=== PATIENT | male | born 1960 | race Caucasian/White ===

== ENCOUNTER → 2020-10-18 09:45 | Outpatient (CLI) | payer BC, SELFPAY ==
--- NOTE | ~2020-10-18 | CT_ITS ---
EXAMINATION: CT abdomen pelvis wo con EXAM DATE: 10/18/2020 10:14 INDICATION: Calcium kidney stone . TECHNIQUE: Spiral CT of the abdomen and pelvis was performed without contrast. Axial, coronal and sag ittal images were reviewed. The dose-length product (DLP) for this examination was 1096.85 mGy-cm. The exposure was tailored according to patient size (auto mA exposure control), and iterative reconst ruction (ASIR) was used as additional dose reduction technique. There is no prior study for comparis on. FINDINGS: There is a 4 mm stone in the distal aspect of the left ureter, 2 cm from the ureterovesicul ar junction. Mild left hydroureter and periureteral fat stranding. Large amount of calcium casting th e right renal pelvis and inferior moieties with mild adjacent inflammation. Possible staghorn calculu s. On the left there are 2 sizable stones measuring up to 9 mm. There is mild to moderate left, mild right renal atrophy. The prostate is unremarkable. The bladder is unremarkable. The liver, spleen, adrenal glands and pancreas are unremarkable. Gallbladder is unremarkable. No bi liary obstruction. There is no retroperitoneal or pelvic lymphadenopathy. The appendix is normal. There is mild scattered colonic diverticulosis. There is no adjacent inflamm atory change to suggest diverticulitis. The stomach and small bowel are unremarkable. There is expec salvador amount of colonic stool. No free intraperitoneal gas. The heart is normal in size. There are no pericardial or pleural effusions. There is a 10 mm lingular nodule without spiculation, a 10 mm right lower lobe nodule which is mildly lobulated. Another 6 mm right lower lobe nodule and several other smaller nodules identified. Granul omata versus metastatic disease. Large Schmorl's node in the inferior endplate of L3. There are no o steoblastic or osteolytic lesions identified. IMPRESSION: 1. Scattered lung base nodules up to 1 cm, metastatic disease versus granulomata. Clinical correlati on for any known primary malignancy. In absence of outside CT available for comparison, a follow-up P ET/CT, 3 month follow-up chest CT can be considered. 2. Left distal ureteral 4 mm stone, mild hydroureter. 3. Bilateral nephrolithiasis, large right-sided calcification casting pelvis, calyces. 4. Colonic diverticulosis. Reviewed, dictated and finalized at location A. CTIVE AUTOMOBILE SECTION IMPRESSION: 1. Scattered lung base nodules up to 1 cm, metastatic disease versus granuloma ta. Clinical correlation for any known primary malignancy. In absence of outsid e CT available for comparison, a follow-up PET/CT, 3 month follow-up chest CT c an be considered. 2. Left distal ureteral 4 mm stone, mild hydroureter. 3. Bilateral nephrolithiasis, large right-sided calcification casting pelvis, calyces. 4. Colonic diverticulosis.
--- NOTE | ~2020-10-18 | XR_ITS ---
EXAMINATION: XR abdomen/kub 1V EXAM DATE: 10/18/2020 10:14 INDICATION: Calcium kidney stone. TECHNIQUE: Frontal projection(s) of the abdomen for interpretation. Correlation is made to CT earlier same date. FINDINGS: Right-sided casting renal collecting system stone identified, indicated. Possible identific ation of left inferior calyceal stone. Pelvic calcifications are likely phleboliths. Left distal uret eral stone is difficult to identify. Nonobstructing bowel gas pattern. IMPRESSION: Relatively low density but large casting right calyceal, pelvis calcification. Can't con fidently identify the distal left ureteral stone. Reviewed, dictated and finalized at location A. STIC ASSOCIATE IMPRESSION: Relatively low density but large casting right calyceal, pelvis ca lcification. Can't confidently identify the distal left ureteral stone.
== END ==
PROVIDERS: Visit Provider Urology
DX: N20.0 Calculus of kidney (principal); R91.8 Other nonspecific abnormal finding of lung field; N20.1 Calculus of ureter; N13.4 Hydroureter; K57.90 Diverticulosis of intestine, part unspecified, without perforation or abscess without bleeding
CPT/HCPCS: 74018; 74176

== ENCOUNTER 2020-10-31 07:41 | Outpatient (CLI) | payer BC, SELFPAY ==
--- NOTE | ~2020-10-31 | PE_ITS ---
EXAMINATION: PET skull to mid thigh DATE: 10/31/2020 09:27 INDICATION: Pulmonary nodules. TECHNIQUE: Blood glucose level was 206 mg/dL. 10.183 mCi of 18-fluorodeoxyglucose (18-FDG) was admini stered i.v. Low dose computed tomography (CT) images were acquired from the base of the brain to the proximal thighs for attenuation correction and anatomic localization. Automated exposure control was employed. Dose-length product (DLP) was 1225 mGy-cm. Positron emission tomography (PET) images were a cquired in the same distribution. COMPARISON: CT abdomen and pelvis 10/18/2020 FINDINGS: Head/neck: There is increased activity in the oropharynx and glottis without CT correlate, likely phy siologic. There are no pathologically enlarged lymph nodes. Chest: There are a few nodules in the lungs measuring up to 10 mm in the lingula without increased ac tivity. No pleural effusion. The heart size is normal. There are coronary artery calcifications. Ther e are calcifications of the aortic valve. No pericardial effusion. Abdomen/pelvis/proximal thighs: The liver, gallbladder, spleen, pancreas, and adrenal glands are norm al. There is mild atrophy of left kidney. There are multiple stones in the kidneys including a stagho rn calculus in right kidney. There is mild right hydronephrosis. The prostate is mildly enlarged. The re are no dilated loops of bowel. There are no pathologically enlarged lymph nodes. There is no free intraperitoneal fluid. There is an old healed fracture of right ischium. IMPRESSION: 1. Pulmonary nodules measuring up to 10 mm without increased activity, probably benign. Noncontrast l ow-dose chest CT is recommended in 6 months. 2. Bilateral kidney stones including a staghorn calculus in right kidney with mild right hydronephros is. Reviewed, dictated and finalized at location A. IMPRESSION: 1. Pulmonary nodules measuring up to 10 mm without increased activity, probably benign. Noncontrast low-dose chest CT is recommended in 6 months. 2. Bilateral kidney stones including a staghorn calculus in right kidney with m ild right hydronephrosis.
[2020-10-31 08:01] LABS: Glucose Point of Care 206 (65-105)
== END 2020-10-31 07:42 | disposition home or self-care (01) ==
PROVIDERS: PCP Nurse Practitioner Family; Visit Provider Nurse Practitioner Family
DX: R91.8 Other nonspecific abnormal finding of lung field (principal); N20.0 Calculus of kidney
CPT/HCPCS: 78815; 82948; A9552

== ENCOUNTER 2020-11-03 12:25 | Outpatient (CLI) | payer BC, SELFPAY ==
--- NOTE | ~2020-11-03 | NM_ITS ---
EXAMINATION: NM renal flow and function DATE: 11/03/2020 13:57 INDICATION: Nephrolithiasis. Hydronephrosis. TECHNIQUE: 7.8 mCi Tc-99m MAG3 was administered IV. The patient was scanned in the supine position. A posterior abdominal radionuclide angiogram was obtained. A subsequent time course of static images of the kidneys, ureters, and bladder was obtained. COMPARISON: CT dated 10/18/2020 FINDINGS: The posterior abdominal radionuclide angiogram and sequential static images show normal position, and morphology of the kidneys. There is slight asymmetric enlargement of the right kidney with central p hotopenic region which fills in on the delayed images consistent with hydronephrosis seen on prior CT . Peak renal parenchymal uptake was 3.5 min in left kidney and >30 min in right kidney (normal peak 3 -5 minutes) with continually rising right renal curve. The relative early renal uptake was 58% on th e left and 42% on the right (<40% is abnormal). The peak to 1/2 peak time from the left kidney is 24 minutes which is slightly greater than normal and suggests low-grade obstruction although no obstruct ing stone was evident on the left on the subsequent PET/CT study dated 10/31/2020. No abnormalities of the ureters or bladder are seen. IMPRESSION: 1. Asymmetrically decreased right renal function which is at the upper limits of normal with a kat nually rising right renal activity curve suggesting physiologically significant obstruction likely re sulting from the large staghorn calculus seen on prior CT. 2. Mildly delayed peak to 1/2 peak time of 24 minutes for the left kidney suggesting a low-grade obst ruction without no obstructing stones was evident on the most recent PET/CT study. Reviewed, dictated and finalized at location B. IMPRESSION: 1. Asymmetrically decreased right renal function which is at the upper limits of normal with a continually rising right renal activity curve suggesting physi ologically significant obstruction likely resulting from the large staghorn janine culus seen on prior CT. 2. Mildly delayed peak to 1/2 peak time of 24 minutes for the left kidney sugge sting a low-grade obstruction without no obstructing stones was evident on the most recent PET/CT study.
== END 2020-11-03 12:26 | disposition home or self-care (01) ==
PROVIDERS: PCP Nurse Practitioner Family; Visit Provider Urology
DX: N20.0 Calculus of kidney (principal)
CPT/HCPCS: 78707; A9562

== ENCOUNTER 2021-01-03 08:37 | Outpatient (CLI) | payer BC, SELFPAY ==
--- NOTE | ~2021-01-03 | CT_ITS ---
EXAMINATION: CT abdomen pelvis wo con EXAM DATE: 01/03/2021 09:13 INDICATION: Kidney stone. TECHNIQUE: Spiral CT of the abdomen and pelvis was performed without contrast. Axial, coronal and sag ittal images were reviewed. The dose-length product (DLP) for this examination was 1131.95 mGy-cm. The exposure was tailored according to patient size (auto mA exposure control), and iterative reconst ruction (ASIR) was used as additional dose reduction technique. Comparison is made to prior examinati on from 10/18/2020. FINDINGS: There is a stone in the right renal pelvis measuring 1.5 x 3.0 cm, with moderate to severe right hydronephrosis, only mild hydronephrosis on prior study. Moderate right-sided perinephric fat s tranding. Multiple other large right-sided stones or stone fragments. Smaller left renal stone burden , measuring up to about 7 mm in size. No left hydronephrosis. No stones within the ureters. The pros hill is unremarkable. The bladder is unremarkable. The liver, spleen, adrenal glands and pancreas a re unremarkable. Gallbladder is unremarkable. No biliary obstruction. There is no retroperitoneal or pelvic lymphadenopathy. The appendix is normal. There is mild scattered colonic diverticulosis. There is no adjacent inflamm atory change to suggest diverticulitis. The stomach and small bowel are unremarkable. There is expec salvador amount of colonic stool. No free intraperitoneal gas. The heart is normal in size. There are no pericardial or pleural effusions. Scattered lung base nodules up to 1 cm unchanged, and recently evaluated by PET/CT to be without incr eased activity, most likely benign. Patient's 6 month follow-up CT from that exam is due mid Septembe r. There are no osteoblastic or osteolytic lesions identified. IMPRESSION: 1. Large right UPJ stone, large amount of additional right calyceal stone fragments. Development of moderate to severe right hydronephrosis and moderate perinephric fat stranding. 2. Left nephrolithiasis. 3. Scattered colonic diverticulosis. 4. Stable pulmonary nodules; follow-up chest CT in April. Reviewed, dictated and finalized at location A. IMPRESSION: 1. Large right UPJ stone, large amount of additional right calyceal stone frag ments. Development of moderate to severe right hydronephrosis and moderate guillermo nephric fat stranding. 2. Left nephrolithiasis. 3. Scattered colonic diverticulosis. 4. Stable pulmonary nodules; follow-up chest CT in April.
--- NOTE | ~2021-01-03 | XR_ITS ---
EXAMINATION: XR abdomen/kub 1V EXAM DATE: 01/03/2021 09:03 INDICATION: Kidney stone. TECHNIQUE: Frontal projection(s) of the abdomen for interpretation. Correlation is made to CT abdomen pelvis same date. FINDINGS: Large right UPJ stone identified, along with other right calyceal stone fragments. Left ne phrolithiasis also identified. Nonobstructive bowel gas pattern. Calcifications in the pelvis are bel ieved to be phleboliths. There are mild bony degenerative changes. IMPRESSION: 1. Bilateral nephrolithiasis. Reviewed, dictated and finalized at location A.
== END 2021-01-03 08:38 | disposition home or self-care (01) ==
PROVIDERS: PCP Nurse Practitioner Family; Visit Provider Urology
DX: N20.1 Calculus of ureter (principal); N13.0 Hydronephrosis with ureteropelvic junction obstruction; K57.30 Diverticulosis of large intestine without perforation or abscess without bleeding; R91.8 Other nonspecific abnormal finding of lung field
CPT/HCPCS: 74018; 74176

== ENCOUNTER 2021-01-09 03:33 | Day surgery (SDC) | payer BC, SELFPAY ==
[2021-01-08 14:14] VITALS: BMI 35.4
[2021-01-09] VITALS (8 sets, daily range): BP systolic 124–156; BP diastolic 80–96; PULSE 83–105; RESP 16–22; TEMP 36.4; O2SAT 91–97
--- NOTE | ~2021-01-09 | XR_ITS ---
EXAMINATION: XR retrograde pyelo w/stent RT DATE: 01/09/2021 13:25 INDICATION: Right internal ureteral stent placement TECHNIQUE: Fluoroscopic images from a right internal ureteral stent placement are submitted for mariely segura 30 seconds of fluoroscopy time. 7 fluoroscopic images. FINDINGS: There is a right double-J internal ureteral stent projecting in expected position, with proximal Sanford loop at the level of the renal pelvis and distal loop in the pelvis within the bladder lumen. IMPRESSION: 1. Right internal ureteral stent placement. Please refer to real-time procedural findings for soraida goyal. Reviewed, dictated and finalized at location A. IMPRESSION: 1. Right internal ureteral stent placement. Please refer to real-time procedu ral findings for details.
--- NOTE | 2021-01-09 11:03 | WPDHPUPDATE1 ---
History and Physical Update Update Date/Time: 01/09/21 11:03 History and Physical has been reviewed, including an updated exam of the patient. There are NO changes in the patient's condition. Risks, benefits, and alternatives have been discussed and questions answered. Patient agrees to proceed with procedure. Proceed with cysto, right retrograde, right stent placement.
[2021-01-09] MEDS: LACTATED RINGERS 1,000 ML 30 ML IV CONT (12:11)
--- NOTE | 2021-01-09 12:12 | P.PNAN_ITS ---
Anes - Initial Pre Proc Eval Procedure: Operation Date: 01/09/21 15:00 Proposed Procedures p Cystoscopy ,Right Ureteroscopy with Stent Placement, Right Retrograde Pyelogram - Michael Whitaker MD Date/Time: 01/09/21 12:12 Surgeon: Michael Whitaker MD Pre Op Diagnosis: Right renal stone Patient Data Age: 60 Gender: M Height: 5 ft 10.5 in Weight: 113.4 kg Allergies Allergy/AdvReac Type Severity Reaction Status Date / Time No Known Allergies Allergy Verified 01/09/21 12:04 Home Medications Medication Instructions Recorded Confirmed Type semaglutide [Ozempic] 0.5 mg SUBCUT WEEKLY 01/08/21 01/08/21 History Patient hx anesthesia problems: none Family hx anesthesia problems: none REPLACED BY [facility] Past Medical History Medical History (Updated 01/09/21 @ 12:13 by Simba Drummond MD) Diabetes Migraine Obesity Renal stones Surgical History Surgical History (Updated 01/09/21 @ 12:14 by Simba Drummond MD) History of total knee arthroplasty Social History Social History Smoking status: Never smoker Alcohol intake: never Substance use: never Substance use type: does not use Living arrangements: with family Spiritual care concerns: No Anes - Eval Final PreProcedure Day of Procedure 01/09/21 12:12 Patient weight: obese Heart: regular rate and rhythm Lungs: clear to auscultation Airway: Mallampati scale class II Neurological: alert and oriented Last oral intake: >/= 8 hours ASA classification: III Emergent: no Anesthetic plan: proceed Anesthesia type and monitoring: general LMA and standard monitoring Informed Consent: The patient's anesthetic plan and its attendant risks and benefits were discussed with the patient/family/POA. Questions were solicited and answers provided to the satisfaction of the patient/family/POA.
[2021-01-09 12:14] LABS: Glucose Point of Care 155 mg/dl (65-105)
[2021-01-09] MEDS: ceFAZolin 3 GM/D5W 100 ML 100 ML IVPB (12:59)
[2021-01-09] MEDS: LIDOCAINE HCL 2% GEL UROJET 10 ML PKG MUCOUS MEM (13:20)
--- NOTE | 2021-01-09 13:25 | PM.PROC ---
Procedure Note - Detailed Date of procedure: 01/09/21 Pre-op diagnosis: Right renal stone Post-op diagnosis: same Procedure performed: Cystoscopy, right retrograde pyelogram, right ureteral stent placement 6 Bahraini contour Description of procedure: Patient is taken the operative suite and correctly identified. Once anesthesia was obtained he was placed in dorsal lithotomy position and prepped and draped usual sterile fashion. Twenty-two Bahraini scope was inserted in the bladder. There are no tumors noted. The right ureteral orifice was cannulated with a Foster and a pyelogram was performed. Guidewire was then placed past the stone. A 6 [place]i contour stent was then placed with the proximal end which appears to be in the renal pelvis adjacent to the stone in the distal in the bladder. 2% viscous lidocaine was inserted urethra. He is taken recovery stable condition. He will proceed with his percutaneous nephrolithotomy with Dr. Olguin as an outpatient at a later point time. Anesthesia: GLMA Surgeon: Michael Whitaker MD Drains: Yes Packing: No Pathology: none sent Complications: No immediate complications Condition: stable Disposition: PACU
[2021-01-09 14:24] LABS: Glucose Point of Care 163 mg/dl (65-105)
== END 2021-01-09 14:45 | disposition home or self-care (01) ==
PROVIDERS: PCP Nurse Practitioner Family; Visit Provider Urology
PROC: (CPT 52352; principal; 2021-01-09 15:00)
DX: N20.1 Calculus of ureter (principal); E11.9 Type 2 diabetes mellitus without complications; E66.9 Obesity, unspecified; Z68.38 Body mass index [BMI] 38.0-38.9, adult
CPT/HCPCS: 52332; 74420; 82948; A9270; C1758; C1769; C2617; J0690; J1100; J2250; J2405; J2704; J3010; J7120; Q9966

== ENCOUNTER 2021-01-29 10:05 | Outpatient (CLI) | payer BC, SELFPAY ==
--- NOTE | ~2021-01-29 | XR_ITS ---
XR abdomen/kub 1V 01/29/2021 10:17 Indication: Renal stones Procedure: KUB Comparison: 01/03/2021 Findings: There are right renal stones. There is a right internal ureteral stent in expected position . There are pelvic phleboliths. There are faint left renal stones. Bowel gas pattern is nonobstructiv e. Impression: 1: Bilateral nephrolithiasis with right internal ureteral stent in expected position. Reviewed, dictated and finalized at location A. Impression: 1: Bilateral nephrolithiasis with right internal ureteral stent in expected pos ition.
== END 2021-01-29 10:06 | disposition home or self-care (01) ==
LOC: ANHIMG 10:08
PROVIDERS: PCP Nurse Practitioner Family; Visit Provider Urology
DX: N28.9 Disorder of kidney and ureter, unspecified (principal); N20.0 Calculus of kidney; Z96.0 Presence of urogenital implants
CPT/HCPCS: 74018

== ENCOUNTER 2021-10-01 03:01 | Outpatient (CLI) | payer BC, SELFPAY ==
[2021-09-21 09:00] VITALS: BMI 38.7
--- NOTE | 2021-09-21 09:07 | PC.NURSE ---
Report to the Outpatient Waiting Room, entrance under the green pavilion located off [facility], at time 0730 on date 10/01/21. OR Time: 0930. - You will be asked a series of questions to screen for COVID 19 for your protection. - A mask is required within the hospital. - No visitors are allowed at this time. Preoperative COVID Testing Requirements: No COVID Test needed if: (proof is required; if not received patient will have Rapid Test prior to entry) - Patient has received COVID Vaccine at least 14 days prior to procedure date or - Patient has positive COVID test result within last 90 days of surgery date. COVID Test needed if above criteria is not met - No food/DRINK FOR 6 HOURS PRIOR TO PROCEDURE Take the following medications with a SIP of water the morning of surgery: NONE Medications to discontinue per physician: N/A Date to take last dose: N/A Please no make-up, nail greek, hairspray, perfume, deodorant, or body powder the day of surgery. No jewelry (including any body piercings) or valuables the day of surgery, leave them at home. Please take a shower or bath the night before, or the morning of, surgery with an antibacterial soap. Wear comfortable, loose fitting clothing. - Jewelry must be removed prior to entering the operating room. Rings and piercings that are not removed may be cut off. - The hospital will not accept responsibility for valuables. - Please leave all valuables, including medications, at home the day of surgery. If you are going home after surgery, a licensed utility driver must drive you home. - NO public transportation without another adult. - We recommend that an adult stay with you for 24 hours following discharge. - We also recommend that you do not drive, make important decision, drink alcoholic beverages, or take any drugs that were not prescribed by your health care provider for at least 24 hours after your discharge time. Follow any additional instructions given to you from your surgeon. Telephone instructions given to SONJA VIGIL and asked if any additional questions and then verbalized understanding. Patient advised to call surgeon office or pre surgery nurse liaison [phone] if any additional questions.
[2021-10-01] VITALS (12 sets, daily range): BP systolic 109–135; BP diastolic 72–90; PULSE 92–98; RESP 14–20; TEMP 36.6–36.9; O2SAT 96–100
--- NOTE | ~2021-10-01 | US_ITS ---
EXAMINATION: US biopsy renal DATE: 10/01/2021 10:44 INDICATION: Monoclonal gammopathy. TECHNIQUE: The procedure including the risks, benefits, and alternatives was discussed with the patie nt. Risks discussed included bleeding and infection. The patient understood the risks and agreed to p roceed. A timeout was performed to verify the patient's name, date of , and procedure to be p erformed. The skin overlying the left kidney was prepped and draped in usual sterile fashion. Anest hetic was administered with 1% lidocaine subcutaneously. An 18 gauge core biopsy needle was then use d to obtain 7 core biopsy specimens under continuous sonographic guidance. The entry site was cleaned and dressed. There were no immediate complications. FINDINGS: Ultrasound images demonstrate the needle in the kidney. IMPRESSION: 1. Ultrasound-guided random left kidney core needle biopsy. Reviewed, dictated and finalized at location A. TICS FABRICATOR AND ASSEMBLER
[2021-10-01 08:26] LABS: Mean Platelet Volume 9.1 fl (7.4-10.4); Platelet Count Result 186 k/mm3 (150-375)
[2021-10-01 08:41] LABS: Prothrombin Time 12.7 Seconds (11.1-14.7)
[2021-10-01 10:51] LABS: Glucose Point of Care 192 mg/dl (65-105)
== END 2021-10-01 14:47 | disposition home or self-care (01) ==
PROVIDERS: PCP Nurse Practitioner Family; Visit Provider Radiology Diagnostic Radiology
PROC: (CPT 76942; principal; 2021-10-01 09:30)
DX: D47.2 Monoclonal gammopathy (principal); N11.9 Chronic tubulo-interstitial nephritis, unspecified
CPT/HCPCS: 36415; 50200; 76942; 82948; 85049; 85610; 88300; 88329